=== PATIENT | male | born 1965 | race Caucasian/White ===

== ENCOUNTER 2019-06-11 13:45 | Emergency (ER) | payer OTHER ==
[~2019-06-11] VITALS: Ht 190.5 cm; Wt 129.3 kg
[2019-06-11] MEDS ORDERED: ALLOPURINOL 10100 M1 PO (13:54)
[2019-06-11] MEDS ORDERED: MELOXICAM15 MG PO (14:49)
[2019-06-11 14:57] VITALS: BP 146/65
== END 2019-06-11 14:58 | disposition home or self-care (01) ==
LOC: M.ERS 13:45
DX: S63.591A Other specified sprain of right wrist, initial encounter (principal); M10.9 Gout, unspecified; X50.9XXA Other and unspecified overexertion or strenuous movements or postures, initial encounter; Y93.89 Activity, other specified; Y92.89 Other specified places as the place of occurrence of the external cause; Y99.8 Other external cause status